=== PATIENT | male | born 1965 | race African-American/Black ===

== ENCOUNTER 2024-05-06 09:50 | Outpatient (AMB) | payer MEDICARE, MEDICAID, SELFPAY ==
--- NOTE | 2024-05-06 09:51 | A.SPINEOV_ITS ---
Vital Signs 05/06/24 09:54 Height 5 ft 9 in Weight 160 lb BMI 23.6 Intake Visit Reasons: chronic bilateral thoracic back pain Intake Note: Mr. Arevalo is here today c/o neck and back discomfort. Mock Up Builder Required: No Allergies No Known Allergies Allergy (Verified 05/06/24 09:54) Assessment & Plan Assessment & Plan (1) Neuroforaminal stenosis of cervical spine: Code(s): M48.02 - Spinal stenosis, cervical region Category: Medical (2) Cervical radiculopathy at C8: Code(s): M54.12 - Radiculopathy, cervical region Category: Medical Plan Dear colleague Thank you for referring Mario Arevalo to the office today with a chief complaint of left neck pain. HPI: This 59-year-old male is status post C5 corpectomy and C3-C4 diskectomy in the past. The surgery was complicated by a postop hematoma that resulted in permanent signs of cervical myelopathy with a spastic gait and numbness in his hands. He comes to see me for a severe pain in his neck that radiates to his scapula and shoulder. The pain started approximately 2 months ago and is not getting better. Extension of the neck produces the pain and therefore he likes to sit forward with with flexion of his neck. He denies any new numbness or weakness. He saw Dr. Delgadillo at [facility] want to refer him to pain management and set nothing else could be done. He comes to see me for a 2nd opinion. Physical Exam: Pleasant male. He ambulates with a cane. He has a spastic ga it. There is mild dexterity loss and pre-existing numbness of his hands. Spurling test is positive with pain radiating to his left neck and shoulder. Radiological Studies: MRI done at [facility] on 02/15/2024 shows a well- decompressed spinal cord and cord atrophy from C4-C7 and myelomalacia. There is severe left C8 foraminal stenosis and facet arthritis at this level. Impression/Plan: This patient is suffering from a left cervical radiculopathy that may be coming from the C7-T1 area. I will refer him to Dr. Ramirez at [facility] for a C7-T1 epidural steroid injection. A positive response would at least help me with a diagnosis to see if a C8 foraminotomies indicated. I will follow-up with the patient after the injection is done. Thank you for allowing me to participate in your patients care. total time spent was 50 minutes in counseling ,coordination of plan, personal review of imaging, surgical decision making and subsequent plan Rolando Gallardo MD, PhD Spine Fellowship Trained Neurosurgeon Director, [facility] Orders: Referrals Pain Management Referral M48.02 - Spinal stenosis, cervical region, M54.12 - Radiculopathy, cervical region Coding Level of Care Code New Pt Level 4 (45546) Diagnoses Neuroforaminal stenosis of cervical spine M48.02 Cervical radiculopathy at C8 M54.12
[2024-05-06 09:54] VITALS: BMI 23.6
--- OUTSIDE RECORDS SUMMARY | 2024-05-06 10:28 | XMS_ITS | Encounter Summary ---
Author Organization [facility] Address [address] [place] [address] Care Team Providers Care Case Briefer Name Role Phone Dianna Machuca MD Primary Care Provider Reason for Visit * Reason Onset Date Comments Procedure Appointment 02/04/2021 Encounter Details Date Type Department Care Team (Late st Contact Info) Description 02/04/2021 Telephone [facility] Central Scheduling Department [address] [place] [id number] Telephone Intake, Staff Procedure Appointment Social History Tobacco Use Types Packs/Day Years Used Date Smoking Tobacco: Some Days Cigarettes 1 38 Started: 09/22/1994 Smokeless Tobacco: Never Comments:Pack years updated based on CT lung screen order. Alcohol Use Standard Drinks/Week Comments Yes 0 (1 standard drink = 0.6 oz pur e alcohol) 2 beers/every couple of days Sex and Gender Information Value Date Recorded Sex Assigned at Male 05/15/2023 5:19 PM EST Legal Sex Male 7:10 AM EDT Gender Identity Male 05/15/2023 5:19 PM EST Sexual Orientation Straight 05/15/2023 5: 19 PM EST documented as of this encounter Miscellaneous Notes * Telephone Encounter - Debbie Samuels - 02/04/2021 2:24 PM EDT Appt booked with patient. * Telephone Encounter - Asim Lemon - 02/04/2021 1:58 PM EDT Pt.'s marek Grover calling in to schedule a Biopsy Procedure. Pt.'s Marek grover can be reached at [phone] documented in this encounter Plan of Treatment Scheduled Procedures Name Priority Associated Diagnoses Date/Ti me COLONOSCOPY SCREENING, LOW R ISK WITH POSSIBLE MODERATE SEDATION Colon cancer screening documented as of this encounter Visit Diagnoses Not on filedocumented in this encounter Care Teams Case Briefer Relationship Specialty Start Date End Date Dianna Machuca MD [address] [place] [id number] PCP - General Family Medicine 10/04/22 documented as of this encounter
--- OUTSIDE RECORDS SUMMARY | 2024-05-06 10:29 | XMS_ITS | Encounter Summary ---
Author Organization [facility] Address [address] [place] [address] Care Team Providers Care Dye Feeder Name Role Phone Dianna Machuca MD Primary Care Provider Reason for Visit * Reason Onset Date Comments PT 1 TRansportation 04/13/2024 Encounter Details Date Type Department Care Team (Late st Contact Info) Description 04/13/2024 Telephone [facility] [address] [place] [id number] Masticator: Dianna Rosen MD [address] [place] [address] PT 1 TRansportation Social History Tobacco Use Types Packs/Day Years Used Date Smoking Tobacco: Every Day Cigarettes 1 38.4 Started: 09/22/1994 Smokeless Tobacco: Never Comments:Pack years updated based on CT lung screen order. Alcohol Use Standard Drinks/Week Comments Yes 0 (1 standard drink = 0.6 oz pur e alcohol) 2 beers/every couple of days [facility] Utilities Answer Date Recorded In the past 12 months has [employer] electric, gas, oil, or water company threatened to shut off services in your home? No 12/21/2023 Hunger Vital Sign Answer Date Recorded Within the past 12 months, y ou worried that your food would run out before you got the money to buy more. Never true 12/21/19 24 Within the past 12 months, t he food you bought just didn't last and you didn't have money to get more. Never true 12/21/2023 Transportation Answer Date Recorded In the past 12 months, has l ack of reliable transportation kept you from medical appointments, meetings, work or from getting things needed for daily living? No 12/21/2023 Housing Answer Date Recorded Housing Risk Low 1 12/21/2023 Housing Risk Medium 1 12/21/2023 Housing Risk High Not on file 12/21/2023 What is your living situation today? [facility] 12/21/2023 Sex and Gender Information Value Date Recorded Sex Assigned at Male 05/15/2023 5:19 PM EST Legal Sex Male 7:10 AM EDT Gender Identity Male 05/15/2023 5:19 PM EST Sexual Orientation Straight 05/15/2023 5: 19 PM EST documented as of this encounter Miscellaneous Notes * Telephone Encounter - Brian Rojas - 04/13/2024 9:31 AM EST PT-1 Request Number [id number] is Pending/ Dr Gallardo [address] [place] [address] Dr. Shahrzad Courtney * Telephone Encounter - Brian Rojas - 04/13/2024 9:26 AM EST PT-1 Request Number [id number] is Pending/ [address] [place] [address] * Telephone Encounter - Brian Rojas - 04/13/2024 9:25 AM EST PT-1 Request Number [id number] is Authorized / [address] * Telephone Encounter - Brian Rojas - 04/13/2024 9:23 AM EST PT-1 Request Number [id number] is Authorized / [facility] documented in this encounter Plan of Treatment Scheduled Procedures Name Priority Associated Diagnoses Date/Ti me COLONOSCOPY SCREENING, LOW R ISK WITH POSSIBLE MODERATE SEDATION Colon cancer screening documented as of this encounter Visit Diagnoses Not on filedocumented in this encounter Care Teams Dye Feeder Relationship Specialty Start Date End Date Dianna Machuca MD [address] [place] [address] PCP - General Family Medicine 10/04/22 documented as of this encounter
--- OUTSIDE RECORDS SUMMARY | 2024-05-06 10:29 | XMS_ITS | Clinical Summary ---
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 diclofenac (VOLTAREN) 1% gelIndications:P osterior right knee pain Apply 2 g topically to the affected area 4 times a day. 100 g 01/12/20 20 Active baclofen (LIORESAL) 20 mg tabletIndication s:Muscle spasm Take 1 tablet (20 mg total) by mouth 3 times a day. [phone] 270 tablet 12/04/19 23 Active betamethasone dipropionate 0.05 % ointmentIndicati ons:Lichen planus Apply topically to the affected area 2 times a day as needed (Rash). 45 g 3 12/04/19 23 Active polyethylene glycol 3350 (MIRALAX) 17 gram packetIndication s:Chronic idiopathic constipation Take 1 packet (17 g total) by mouth once a day. Mix powder in 4 to 8 oz of water, juice, coffee, or tea. 30 each 1 12/04/19 23 Active triamcinolone acetonide (KENALOG) 0.1% ointment Apply topically to the affected area 2 times a day. 30 g 12/04/19 23 Active sucralfate (CARAFATE) 1 gram tablet Take 1 tablet (1 g total) by mouth 2 times a day as needed (dyspepsia). 60 tablet 5 03/11/20 23 Active QUEtiapine (SEROquel) 100 mg tablet Take 1 tablet (100 mg total) by mouth nightly. 30 tablet 11 08/10/19 24 Active atorvastatin (LIPITOR) 10 mg tabletIndication s:Cardiovascular risk factor TAKE ONE TABLET BY MOUTH DAILY 90 tablet 3 10/02/19 24 Active multivitamin (Daily-Simone, with folic acid,) tablet TAKE 1 TABLET BY MOUTH ONCE A DAY. 90 tablet 3 10/02/19 24 Active food supplemt, lactose-reduced (Ensure) liquid TAKE BY MOUTH 3 TIMES A DAY. [place] flavor. 330 mL 11 12/21/19 24 Active diclofenac (VOLTAREN) 50 mg EC tabletIndication s:Trochanteric bursitis of left hip Take 1 tablet (50 mg total) by mouth 2 times a day as needed (pain control). 180 tablet 11 03/04/20 24 Active gabapentin (NEURONTIN) 100 mg capsule Take 1 capsule (100 mg total) by mouth 2 times a day. 60 capsule 3 03/11/20 24 Active amLODIPine (NORVASC) 10 mg tabletIndication s:Hypertension, unspecified type TAKE 1 TABLET (10 MG TOTAL) BY MOUTH ONCE A DAY. 90 tablet 03/22/20 24 Active lamoTRIgine (LaMICtal) 100 mg tablet Take 1 tablet (100 mg total) by mouth once a day. 30 tablet 2 03/24/20 24 025 Active omeprazole (PriLOSEC) 20 mg capsuleIndicatio ns:Epigastric pain TAKE 1 CAPSULE (20 MG TOTAL) BY MOUTH 2 TIMES A DAY. 180 capsule 1 04/11/19 25 Active calcium carbonate (Calcium Antacid) 200 mg calcium (500 mg) chewable tablet Chew and swallow 2 tablets (1,000 mg total) by mouth once a day. 180 tablet 3 04/18/19 25 Active omeprazole (PriLOSEC) 20 mg capsuleIndicatio ns:Epigastric pain Take 1 capsule (20 mg total) by mouth 2 times a day. 180 capsule 1 08/10/19 24 025 Discontinued Hospital, Clinic, or Other Facility Administered Medication Ordered Dose Route Frequency Start Date End Date Status lidocaine-EPINEPHrine PF (XYLOCAINE W/ EPI) 1%-1:200,000 injection 50 mgIndications:Hyperpigme nted skin lesion 50 mg intraderma Once 03/14/2021 Active Active Problems Problem Noted Date Diagnosed Date Chronic bilateral back pain 03/25/2024 Moderate protein-calorie malnutrition 12/21/2023 Assessment & Plan (01/08/2024 12:05 PM EDT): -boost rx started today Orders: Durable Medical Equipment Reactive arthritis, unspecified site 01/21/2022 Chronic pain of right knee 08/15/2020 Assessment & Plan (08/15/2020 2:43 PM EDT): Follows with Dr Gramajo for sterioid injections for moderate knee arthritis. He is status post 3 injections of Visco supplementation last injection February 2020. Range of motion, pain, mobility are all decreasing. His history and physical exam are consistent with osteoarthritis. He did get a couple months of relief from the injection and would like to do another round. Placed amatory referral to orthopedics for Mario to be evaluated and treated again. Primary osteoarthritis of right knee 01/26/2020 Overview (01/26/2020): Seen by ortho 01/2020. Starting visco supplementation. Osteopenia of multiple sites 09/23/2019 Assessment & Plan (11/30/2019 6:35 PM EDT): Had incidental finding of osteopenia on LDCT for lung cancer screening 09/21/2019 F/u labs for osteopenia (CMP, CBC, Phos, Vit D, Testosterone, TSH w/ reflex, PTH) unremarkable DEXA 11/29/2019 showing osteopenia only, with 10-year Fracture Risk (FRAX) of 5.2% for major osteoporotic fracture and 0.8% for hip fracture Recommendations included Calcium 1000 mg daily, Vitamin D, and weight-bearing exercise Hernia of abdominal cavity 09/23/2019 Left leg weakness 03/25/2018 Tobacco use disorder 03/25/2018 Assessment & Plan (01/08/2024 12:05 PM EDT): Precontemplative stage of change -offered support Esophageal dysphagia 03/02/2017 Assessment & Plan (08/15/2020 2:40 PM EDT): Here for clinic visit for renewal of ensure. Patient has an ongoing need for Ensure secondary to dysphagia following a cervical spine surgery. His dysphagia is not progressive. He cuts his food into small pieces and is able to maintain his weight using 3 times daily Ensure. A summary of the visit was provided to the patient so that he can call to order his Ensure. Diffuse pain in left upper extremity 12/26/2016 Cervical vertebral fusion syndrome 05/29/2016 Assessment & Plan (01/08/2024 12:05 PM EDT): As above for neck pain Orders: Ambulatory referral to Ortho - All; Future S/P cervical spinal fusion 06/21/2015 Assessment & Plan (01/08/2024 12:05 PM EDT): Recently worsened neck pain -referral to establish care with new ortho given previous ortho has left the practice -DME order for soft cervical collar started today -cont tylenol, diclofenac, topical pain cream prn pain Cervical myelopathy 04/12/2015 Hyperreflexia 03/21/2015 Clonus 03/21/2015 Trochanteric bursitis of left hip 01/21/2013 Major depressive disorder with single episode, i n remission 03/10/2011 Lichen planus 03/02/2011 Essential hypertension 02/29/2008 Resolved Problems Problem Noted Date Diagnosed Date Resolved Date Left inguinal hernia 10/03/2019 020 Assessment & Plan (10/03/2019 10:21 AM EDT): Mario has a symptomatic left inguinal hernia. There was a visible bulge in the left inguinal area on exam today. He has no symptoms on the right. He also had an ultrasound that showed a fat-containing left inguinal hernia. I did discuss the case with Dr. Grant. Dr. Grant is offering an elective laparoscopic left inguinal hernia repair with mesh possible bilateral. Dr. Grant will examine him in the morning of surgery. I have been through the procedure in detail with Mario including risks. The risks of the procedure were reviewed with the patient including but not limited to pain, infection, bleeding, injury to surrounding structures, need for further procedures, heart attack, stroke and . The patient stated understanding and wishes to proceed with surgery. We also talked about the possibility of infertility, seroma, hematoma and urinary retention. I did offer an in person visit with Mario and the surgeon however Mario prefers to just go ahead and schedule surgery and he will meet Dr. Grant on the morning of surgery. I would like the case to be booked at [facility] as he does have a history of a neck fusion which may make intubation more difficult. He understands that he will be sore and out of work for 1 to 2 weeks and should do no heavy lifting greater than 10 pounds for 4 weeks postoperatively. He will be giving a small amount of narcotics for the first 2 days postoperatively and then he can alternate Tylenol and Advil. In the meantime I have warned him of signs and symptoms of strangulation and incarceration and he knows to go immediately to the nearest emergency room if any of those happen for him. He knows that he will need a COVID test 2 to 3 days before surgery and then to quarantine thereafter. I will order that and give him the date for that once we have a date for his surgery. He understands that he will need a ride to and from the hospital on the day of surgery. He does live with his girlfriend and this is not an issue. Thank you for allowing us to participate in his care. Overweight (BMI 25.0-29.9) 09/23/2019 0 12/03/2022 Fall 08/12/2017 12/03/2022 Viral infection 03/14/2016 12/03/2022 Pre-op examination 05/18/2015 3 Weakness of lower extremity 03/21/2015 05/18/2023 Acute gastritis 12/18/2014 12/03/2022 Gastroenteritis 09/07/2014 12/03/2022 Sprain of ribs 06/02/2014 12/03/2022 Hip pain 10/27/2013 12/03/2022 Contusion Of The Right Chest Wall With Intact Skin Surface 07/22/2012 12/03/2022 Disease of nail 06/09/2012 05/18/2023 Abdominal pain 10/10/2011 12/03/2022 Seborrheic dermatitis 03/11/20112022 Fracture of ankle Left 09/13/201012/03 Encounters * This document contains information received from the source organization and may not represent a complete record from that organization. Date Type Department Care Team Description 04/18/[address] [phone] Training Lead: Kala Hewitt MA 04/13/2024 Alisonhart Message [address] [phone] Training Lead: Francy Moser Provider Pt 1 Transportation Information 04/13/[address] [phone] Training Lead: Dianna Rosen MD PT 1 TRansportation 04/08/[address] [phone] Training Lead: Jennifer Reynoso PA Epigastric pain 04/04/[address] [phone] Training Lead: Dianna Rosen MD 03/28/2024 Mara Message [address] [phone] Training Lead: Francy Moser Provider REFERRAL TO DR SHAYY FIGUEROA 03/25/2024 3:30 PM EST [facility] [address] [phone] Training Lead: Dianna Rosen MD Cervical vertebral fusion syndrome (Primary Dx); Chronic bilateral thoracic back pain; Left leg weakness 03/24/[address] [phone] Training Lead: Queenie Bazan Telephone Intake, Staff PAC Appt Request - Established 03/21/2024 3:30 PM EST Follow-Up [facility] [address] [place] [address] Salomón Delgadillo MD History of fusion of cervical spine (Primary Dx) 03/21/[address] [phone] Training Lead: Jennifer Reynoso PA Hypertension, unspecified type 03/14/[address] [phone] Training Lead: Ramone Wallace [facility] 03/11/2024 2:15 PM EST Follow-Up [address] [phone] Training Lead: Dianna Rosen MD Hypertension, unspecified type (Primary Dx); Moderate protein-calorie malnutrition (HCC); Klippel-Feil syndrome; Colon cancer screening; Lack of access to transportation 03/04/[address] [phone] Training Lead: Dianna Rosen MD PAC Rx Questions 03/04/[address] [phone] Training Lead: Jennifer Reynoso PA Trochanteric bursitis of left hip 02/16/2024 5:01 PM EST - 02/16/2024 11:59 PM EST Hospital Encounter [facility] CT Scan [address] [place] [address] Cervical disc disorder with radiculopathy of mid-cervical region Discharge Disposition: Home or Self Care (01) 02/15/2024 Orders Only [facility] [address] [place] [address] Ana Mustafa PA Mid-cervical disc disorder, unspecified level from Last 3 Months Immunizations Name Administration Dates Next Due COVID-19, Pfizer, mRNA, Biva lent Booster, PF, 30 mcg/0.3 mL dose (for age 12 y and up) 01/01/2022 Covid-19, Pfizer, mRNA, Brooke valent, PF 30 mcg/0.3 mL dose (for ages 12 and older) 09/09/2021,01/29/2021,07/24/2020,07/03 Covid-19, Pfizer, mRNA, Sagar -sucrose Vaccine, PF, 30 mcg/0.3 mL (for age 12 y and up) 01/12/2023 INFLUENZA, SPLIT VIRUS, TRIVALENT, PF 03/09/2015 Influenza, Injectable, Madin Mikki Canine Kidney, Preservative Free, Quadrivalent 12/23/2018,12/15/2016 Influenza, Injectable, Quadr ivalent, Preservative Free 01/12/2023,01/01/2022,01/21/2021,12/21,02/01/2018,12/06/2015 Influenza, Unspecified 01/05/2024 Pneumococcal Polysaccharide Vaccine, 23 Valent 12/01/2018 Pneumococcal conjugate PCV20,polysaccharide [id number] conjugate, adjuvant, PF (Prevnar 20) 01/08/2024 Tetanus Toxoid, Reduced Diph theria Toxoid, and Acellular Pertussis Vaccine, Adsorbed 09/13/2018,03/08/2012 Zoster Vaccine Recombinant 01/12/2023 Family History Medical History Relation Name Comments Heart disease Father Other Father Family History of hypertension /Family History of cardiac disorder Asthma Mother Relation Name Status Comments Father Alive Mother Alive Social History Tobacco Use Types Packs/Day Years Used Date Smoking Tobacco: Every Day Cigarettes 1 38.4 Started: 09/22/1994 Smokeless Tobacco: Never Tobacco Cessation:Ready to Q uit: Not Asked; Counseling Given: Not Answered Comments:Pack years updated based on CT lung screen order. Alcohol Use Standard Drinks/Week Comments Yes 0 (1 standard drink = 0.6 oz pur e alcohol) 2 beers/every couple of days [facility] Utilities Answer Date Recorded In the past 12 months has th e electric, gas, oil, or water company threatened [...] Orientation Straight 05/15/2023 5: 19 PM EST Last Filed Vital Signs Vital Sign Reading Time Taken Comments Blood Pressure 128/80 03/11/2024 1:38 PM EST Pulse 79 03/11/2024 1:38 PM EST Temperature 36.7 ??C (98 ??F) 01/21/2024 10:43 AM EDT Respiratory Rate 16 01/21/2024 10:43 AM EDT Oxygen Saturation 98% 01/08/2024 10:47 AM EDT Inhaled Oxygen Concentration - - Weight 75.8 kg (167 lb) 03/11/2024 1:38 PM EST Height 177.8 cm (5' 10 ) 02/02/2024 1:30 PM EDT Body Mass Index 23.96 02/02/2024 1:30 PM EDT Plan of Treatment Scheduled Procedures Name Priority Associated Diagnoses Date/Ti me COLONOSCOPY SCREENING, LOW R ISK WITH POSSIBLE MODERATE SEDATION Colon cancer screening Health Maintenance Due Date Last Done Comments CT Lung Cancer Screening (12 months, previous LungRADS 1 or 2) 09/21/2020 09/22/2019, 09/21/2019 Colonoscopy 11/13/2021 11/13/2016 Zoster Vaccines (2 of 2) 03/09/2023 01/12/2023 COVID-19 Vaccine ( season) 2023 01/12/2023, 01/01/2022, 09/09/2021, Additional history exists Alcohol/Substance Use Screening 04/06/2024 Depression Evaluation 04/06/2024 Social Drivers of Health Annual Screening 04/06/2024 12/21/2023 Basic Metabolic Panel 12/20/2024 12/21/2023 , 11/15/2019, 09/23/2019, Additional history exists DTaP,Tdap,and Td Vaccines (3 - Td or Tdap) 09/13/2028 09/13/2018, 03/08/2012 RSV Vaccine (60+ years old and patients) (1 - 1-dose 75+ series) 02/02/2039 Tobacco Screening 04/06/2042 03/25/2024 Abdominal Aortic Aneurysm (AAA) Screening Completed 09/24/2011 Hepatitis C Screening Completed 08/22/2016 Statin Therapy Completed 10/02/2023 Influenza Vaccine Completed 01/05/2024, , 01/01/2022, Additional history exists HIV Screening Completed 01/08/2024 Pneumococcal Vaccine: Pediatric (0-5 Years) and At-Risk Patients (6-64 Years) Completed 01/08/2024, 12/01/2018 Hepatitis B Vaccines Aged Out No long er eligible based on patient's age to complete this topic Medical Devices Implanted Type Area Foundation Stage Teacher Device Identifier Shelf Expiration Date Model / Serial / Lot Mesh Inguinal Hernia Left Large [id number] - [id number] Implanted:Qty: 1 on 10/14/2019 by Kathy Grant MD at [facility] Mesh Left: Groin [employer] 04/02/2024 [id number] / / [id number] Procedures * Due to [place] state law, this organization might not be sharing negative HIV tests. Procedure Name Priority Date/Time Associated Diagnosis Comments CT CERVICAL SPINE WO CONTRAST Routine 02/16/2024 5:05 PM EST Cervical disc disorder with radiculopathy of mid-cervical region MRI CERVICAL SPINE WO CONTRAST Routine 02/15/2024 8:50 PM EST Mid-cervical disc disorder, unspecified level BASIC METABOLIC PANEL Routine 12/21/2023 10:43 AM EDT Screening for diabetes mellitus CT LUNG CANCER SCREENING BASELINE Routine 09/21/2019 2:32 PM EDT Personal history of nicotine dependence COLONOSCOPY 11/13/2016 10:02 AM EDT HEPATITIS C ANTIBODY W/REFLEX TO HCV RNA, QUANTITATIVE PCR Routine 08/22/2016 1:[address] ABDOMEN PELVIS WO CONTRAST STAT 09/24/2011 1:24 PM EDT from Last 3 Months or Most Recently Relevant to Health Maintenance Results * Due to [place] state law, this organization might not be sharing negative HIV tests. * CT Cervical Spine WO Contrast (02/16/2024 5:05 PM EST) Anatomical Region Laterality Modality Spine, C-spine Computed Tomogra phy 02/16/2024 6:09 PM EST Impressions 02/17/2024 1:23 PM EST Remote, partial C5 corpectomy and C3-6 ACDF changes. No mechanical failure or hardware loosening. Developing degenerative changes above and below the fulcrum with mild to moderate C2-3, C6-7, moderate to severe C7-T1 cervical canal/foraminal stenosis. Severe, right-sided C4-5, C5-6 foraminal stenosis. Additional, chronic degenerative findings as detailed above. Appropriate clinical, imaging correlation and follow-up advised. If this radiology report contains a blank impression section, it is an incomplete radiology report. ??Please contact the interpreting radiologist or applicable radiology division as soon as possible to obtain the completed interpretation. ? Workstation ID: [id number] Up-to-date CT equipment and radiation dose reduction techniques were employed. CTDIvol: 15.0 mGy. DLP: 385 mGy-cm. Narrative 02/17/2024 1:23 PM EST EXAMINATION: CT CERVICAL SPINE WITHOUT CONTRAST TECHNIQUE: Helical CT scan of the cervical spine was performed without intravenous administration with sagittal and coronal reformats. CLINICAL INFORMATION: Chronic neck pain, prior surgery, COMPARISON: Prior comparable studies most recent of which is a cervical spine MRI dated 02/15/2024. FINDINGS: The alignment is within anatomic limits. Remote C5 partial corpectomy with bone containing graft extending from C4 to C6 and C3-6 ACDF changes are again noted. ??Residual C4-5, C5-6 disc spaces are again faintly visualized. ??Otherwise solid anterior fusion is present. ??There is no mechanical failure or loosening of hardware. ??No displaced fractures or compression deformities are seen. Degenerative changes above and below the fulcrum were better delineated in the recent MRI. Individual levels: C1-C2: Retrodental buildup is slightly crowding central canal. ?? C2-C3: Degenerative disc disease, disc bulge and facet arthrosis are contributing to mild to moderate central canal stenosis. ??Neural foramen are better preserved. C3-C4: Posttreatment changes, residual disc osteophyte complex and facet arthrosis are noted. ??Central canal is overall preserved. ??Moderate to severe, bilateral foraminal stenosis is present. C4-C5: Posttreatment changes, asymmetric disc osteophyte complex and facet arthrosis are noted. ??Central canal remains preserved. ??Moderate left, severe right foraminal stenosis is present. C5-C6: Posttreatment changes, asymmetric disc osteophyte complex and facet arthrosis are noted. ??Central canal remains preserved. ??Moderate left, severe right foraminal stenosis are present. C6-C7: Degenerative disc space narrowing, disc osteophyte complex, flaval thickening and facet arthrosis are contributing to mild to moderate central canal and bilateral foraminal stenosis. C7-T1: Degenerative disc disease, asymmetric disc osteophyte complex, flaval thickening and facet arthrosis are contributing to mild to moderate right, moderate to severe left foraminal and moderate central canal stenosis. There is no obvious prevertebral swelling or large paraspinal collection. The craniocervical junction is normal. Resulting Agency Comment [id number] Procedure Note Raheel Marx MD - 02/17/2024 EXAMINATION: CT CERVICAL SPINE WITHOUT CONTRAST TECHNIQUE: Helical CT scan of the cervical spine was performed without intravenousadministration with sagittal and coronal reformats. CLINICAL INFORMATION: Chronic neck pain, prior surgery, COMPARISON: Prior comparable studies most recent of which is a cervical spine MRIdated 02/15/2024. FINDINGS: The alignment is within anatomic limits. Remote C5 partial corpectomy with bone containing graft extending from C4to C6 and C3-6 ACDF changes are again noted. Residual C4-5, C5-6 discspaces are again faintly visualized. Otherwise solid anterior fusion ispresent. There is no mechanical failure or loosening of hardware. Nodisplaced fractures or compression deformities are seen. Degenerative changes above and below the fulcrum were better delineated inthe recent MRI. Individual levels: C1-C2: Retrodental buildup is slightly crowding central canal. C2-C3: Degenerative disc disease, disc bulge and facet arthrosis arecontributing to mild to moderate central canal stenosis. Neural foramenare better preserved. C3-C4: Posttreatment changes, residual disc osteophyte complex and facetarthrosis are noted. Central canal is overall preserved. Moderate tosevere, bilateral foraminal stenosis is present. C4-C5: Posttreatment changes, asymmetric disc osteophyte complex and facetarthrosis are noted. Central canal remains preserved. Moderate left,severe right foraminal stenosis is present. C5-C6: Posttreatment changes, asymmetric disc osteophyte complex and facetarthrosis are noted. Central canal remains preserved. Moderate left,severe right foraminal stenosis are present. C6-C7: Degenerative disc space narrowing, disc osteophyte complex, flavalthickening and facet arthrosis are contributing to mild to moderatecentral canal and bilateral foraminal stenosis. C7-T1: Degenerative disc disease, asymmetric disc osteophyte complex,flaval thickening and facet arthrosis are contributing to mild to moderateright, moderate to severe left foraminal and moderate central canalstenosis. There is no obvious prevertebral swelling or large paraspinalcollection. The craniocervical junction is normal. IMPRESSION: Remote, partial C5 corpectomy and C3-6 ACDF changes. No mechanical failure or hardware loosening. Developing degenerative changes above and below the fulcrum with mild tomoderate C2-3, C6-7, moderate to severe C7-T1 cervical canal/foraminalstenosis. Severe, right-sided C4-5, C5-6 foraminal stenosis. Additional, chronic degenerative findings as detailed above. Appropriate clinical, imaging correlation and follow-up advised. If this radiology report contains a blank impression section, it is anincomplete radiology report. Please contact the interpreting radiologistor applicable radiology division as soon as possible to obtain thecompleted interpretation. Workstation ID: [id number] Up-to-date CT equipment and radiation dose reduction techniques wereemployed. CTDIvol: 15.0 mGy. DLP: 385 mGy-cm. us Ana PATEL IMG CT PROCEDURES Final Resu lt * MRI Cervical Spine WO Contrast (02/15/2024 8:50 PM EST) Anatomical Region Laterality Modality Spine, C-spine Magnetic Resonan ce 02/16/2024 10:0 2 AM EST Impressions 02/16/2024 10:10 AM EST 1. ??Redemonstrated are postoperative changes related to prior corpectomy of C5 with metallic left and prior anterior fusion of C3-C6 vertebral bodies. ??Associated susceptibility somewhat limits the evaluation at these levels. 2. ??Severe right, moderate left neural foramen narrowing with mild spinal canal stenosis at C3-C4 is minimally improved since the prior MRI. 3. ??Relatively stable multilevel multifactorial degenerative disease of the cervical spine at the remaining levels with severe bilateral neural foramen narrowing at C4-C5 and C5-C6, moderate bilateral neural foramen narrowing with mild spinal canal stenosis at C6-C7 and moderate right, severe left neural foramen narrowing and mild spinal canal stenosis at C7-T1. 4. ??Focal myelomalacia of the cord at C3-C4 and C5-C6 levels with long segment thinning of the cord from C3 to C6-C7 levels as described above. If this radiology report contains a blank impression section, it is an incomplete radiology report. ??Please contact the interpreting radiologist or applicable radiology division as soon as possible to obtain the completed interpretation. ? Workstation ID: [id number] Narrative 02/16/2024 10:10 AM EST EXAMINATION: MRI of cervical spine without contrast HISTORY: Neck pain, degenerative changes TECHNIQUE: Multiplanar and multisequence MR imaging of cervical spine spine performed without intravenous contrast administration. Sequences obtained include, Sagittal plane: T1, T2 and STIR Axial plane: T2 and gradient COMPARISON: MRI cervical spine from 06/16/2015 FINDINGS: There is straightening of cervical lordosis. ??Also seen is mild retrolisthesis of C4 on C5 and anterolisthesis of C7 on T1. There has been prior corpectomy of C5 vertebral body with metallic graft and prior anterior fusion of C3-C6 vertebral bodies using anterior spinal plate and screw hardware. ??Associated susceptibility artifact markedly limits the evaluation for marrow signal and disc signal at these levels. Remainder of the vertebral body heights are preserved. ??Remainder of the marrow signal appears unremarkable. ??There is focal T2 hyperintensity in the cord with thinning of the cord at the level of C3-C4 and C5-C6 levels in keeping with myelomalacia. ??Also seen is long segment thickening of the cord extending from mid C3 level up to C6-C7 level, likely related to myelomalacia. Intervertebral disc graft is seen at C3-C4. ??Loss of intervertebral disc height and signal at the remaining levels in keeping with disc degeneration. Visualized thyroid gland is unremarkable. Prevertebral, paravertebral and paraspinal soft tissues appear unremarkable. At C2-C3, central disc osteophyte complex with uncovertebral and facet arthropathy resulting in moderate right, mild left neural foramen narrowing and moderate spinal canal stenosis.. ??This is unchanged since the prior MRI. At C3-C4,central disc ossified complex with uncovertebral and facet arthropathy resulting in severe right, moderate left neural foramen narrowing and mild spinal canal stenosis. ??This is improved since the prior MRI. At C4-C5, central disc ossified complex with uncovertebral and facet arthropathy results in severe bilateral neural foramen narrowing. ??No spinal canal stenosis. This is unchanged since the prior MRI. At C5-C6, uncovertebral and facet arthropathy resulting in severe bilateral neural foramen narrowing. ??No spinal canal stenosis. ??This is unchanged since the prior MRI. At C6-C7, Central disc osteophyte complex with uncovertebral and facet arthropathy results in moderate bilateral neural foramen narrowing and mild spinal canal stenosis. ??This is unchanged since the prior MRI. At C7-T1, diffuse disc bulge with bilateral facet arthropathy results in moderate right, severe left neural foramen narrowing and mild spinal canal stenosis. ??This is unchanged since the prior MRI. Resulting Agency Comment [id number] Procedure Note Carlie Rivera MD - 02/16/2024 EXAMINATION: MRI of cervical spine without contrast HISTORY: Neck pain, degenerative changes TECHNIQUE: Multiplanar and multisequence MR imaging of cervical spine spine performedwithout intravenous contrast administration. Sequences obtained include, Sagittal plane: T1, T2 and STIR Axial plane: T2 and gradient COMPARISON: MRI cervical spine from 06/16/2015 FINDINGS: There is straightening of cervical lordosis. Also seen is mildretrolisthesis of C4 on C5 and anterolisthesis of C7 on T1. There has been prior corpectomy of C5 vertebral body with metallic graftand prior anterior fusion of C3-C6 vertebral bodies using anterior spinalplate and screw hardware. Associated susceptibility artifact markedlylimits the evaluation for marrow signal and disc signal at these levels. Remainder of the vertebral body heights are preserved. Remainder of themarrow signal appears unremarkable. There is focal T2 hyperintensity inthe cord with thinning of the cord at the level of C3-C4 and C5-C6 levelsin keeping with myelomalacia. Also seen is long segment thickening of thecord extending from mid C3 level up to C6- C7 level, likely related tomyelomalacia. Intervertebral disc graft is seen at C3-C4. Loss of intervertebral discheight and signal at the remaining levels in keeping with discdegeneration. Visualized thyroid gland is unremarkable. Prevertebral, paravertebral andparaspinal soft tissues appear unremarkable. At C2-C3, central disc osteophyte complex with uncovertebral and facetarthropathy resulting in moderate right, mild left neural foramennarrowing and moderate spinal canal stenosis.. This is unchanged sincethe prior MRI. At C3-C4,central disc ossified complex with uncovertebral and facetarthropathy resulting in severe right, moderate left neural foramennarrowing and mild spinal canal stenosis. This is improved since theprior MRI. At C4-C5, central disc ossified complex with uncovertebral and facetarthropathy results in severe bilateral neural foramen narrowing. Nospinal canal stenosis. This is unchanged since the prior MRI. At C5-C6, uncovertebral and facet arthropathy resulting in severebilateral neural foramen narrowing. No spinal canal stenosis. This isunchanged since the prior MRI. At C6-C7, Central disc osteophyte complex with uncovertebral and facetarthropathy results in moderate bilateral neural foramen narrowing andmild spinal canal stenosis. This is unchanged since the prior MRI. At C7-T1, diffuse disc bulge with bilateral facet arthropathy results inmoderate right, severe left neural foramen narrowing and mild spinal canalstenosis. This is unchanged since the prior MRI. IMPRESSION: 1. Redemonstrated are postoperative changes related to prior corpectomyof C5 with metallic left and prior anterior fusion of C3-C6 vertebralbodies. Associated susceptibility somewhat limits the evaluation at theselevels. 2. Severe right, moderate left neural foramen narrowing with mild spinalcanal stenosis at C3-C4 is minimally improved since the prior MRI. 3. Relatively stable multilevel multifactorial degenerative disease ofthe cervical spine at the remaining levels with severe bilateral neuralforamen narrowing at C4-C5 and C5-C6, moderate bilateral neural foramennarrowing with mild spinal canal stenosis at C6-C7 and moderate right,severe left neural foramen narrowing and mild spinal canal stenosis atC7-T1. 4. Focal myelomalacia of the cord at C3-C4 and C5-C6 levels with longsegment thinning of the cord from C3 to C6-C7 levels as described above. If this radiology report contains a blank impression section, it is anincomplete radiology report. Please contact the interpreting radiologistor applicable radiology division as soon as possible to obtain thecompleted interpretation. Workstation ID: [id number] [facility] MRI PROCEDURES Final Res ult * (ABNORMAL) Basic metabolic panel (12/21/2023 10:43 AM EDT) NA 142 135 - 145 mmol/L 12/21/2023 1:07 PM EDT [facility] K 3.5 3.5 - 5.3 mmol/L 12/21/2023 1:07 PM EDT [facility] Cl 106 98 - 107 mmol/L 12/21/2023 1:07 PM EDT [facility] CO2 26 24 - 32 mmol/L 12/21/2023 1:07 PM EDT [facility] BUN 7 7 - 23 mg/dL 12/21/2023 1:07 PM EDT [facility] Creatinine 1.13 0.60 - 1.30 mg/dL 12/21/2023 1:07 PM EDT [facility] Glucose 87 65 - 99 mg/dL 12/21/2023 1:07 PM EDT [facility] Calcium 8.5(L) 8.6 - 10.5 mg/dL 12/21/2023 1:07 PM EDT [facility] Anion Gap 10 5 - 15 [facility] 12/21/2023 1:07 PM EDT [facility]NM [facility] eGFR 75 >=60 mL/min/1. 73m2 [facility] 12/21/2023 1:07 PM EDT [facility] Comment:The estimated glomer ular filtration rate (eGFR) is calculated using a new formula developed by the NKF-ASN task force to eliminate race-based correction factors. The new formula uses serum/plasma creatinine, age, and gender to determine eGFR. A value below 60mls/min might indicate kidney disease and will be flagged. For additional information, see Perez et al, Am J Kidney Dis. 2021;79(2):268- 288, A Unifying Approach for GFR estimation: Recommendations of the NKF-ASN Task Force on Reassessing the Inclusion of Race in Diagnosing Kidney Disease . Blood Structure of peripheral vein / Unknown Venipuncture / Unknown 12/21/2023 10:43 AM EDT 12/21/2023 10:46 AM EDT us Dianna Machuca MD LAB BLOOD ORDERABLES Fi nal Result [facility]ONYHUENM [facility] [address] [place] [address], * CT Lung Screening (09/21/2019 2:32 PM EDT) Anatomical Region Laterality Modality Chest Computed Tomogra phy 09/22/2019 11:5 7 AM EDT Impressions 09/22/2019 1:38 PM EDT Slightly degraded study. ??No convincing nodules. Lung-RADS Category 2: Benign Appearance or Behavior Nodules with a very low likelihood of becoming a clinically active cancer due to size or lack of growth Lung-RADS Category Description 2: Continue annual screening with CT Lung Screening ??in 12 months Findings under this category can include: Perifissural nodule(s) < 10 mm (524 mm3) Solid nodule(s): < 6 mm (< 113 mm3) new < 4 mm (< 34 mm3) Part solid nodule(s): < 6 mm total diameter (< 113 mm3) on baseline screening Non solid nodule(s) (GGN): <30 mm (<36354 mm3) OR > or equal to 30 mm ( [place] [address] mm3) and unchanged or slowly growing. Category 3 or 4 nodules unchanged for > or equal to 3 months. ?? Modifier No clinically significant or potentially significant findings Schedule lung cancer screening CT/follow-up CT:09/23/2020 ----- ----- This report uses Lung RADS version 1.1 (2019) [email or web address] .pdf? ??The patient's prior cervical fixation. ??La=en [id number] Up-to-date CT equipment and radiation dose reduction techniques were employed. CTDIvol: 2.4 mGy. DLP: 91 mGy-cm. Narrative 09/22/2019 1:[address] LUNG SCREENING INDICATION: Lung cancer screening. ??38pack year history prior clinical notes COMPARISON: None TECHNIQUE: ??Non-enhanced chest CT. Images were acquired with helical acquisition and low dose technique. Multiplanar reconstructions including MIP, MinIP and Slab images were reviewed. Note that low dose technique uses a low level of radiation exposure that provides adequate lung detail but limited image quality in the mediastinum and upper abdomen. For radiation dose control at least one of the following techniques was used in this procedure (1) Automated exposure control (2) Adjustment of the mA and/or kV according to patient size (3) Use of iterative reconstruction technique. FINDINGS: BASE OF NECK: Examination is slightly degraded by metallic streak artifact from prior cervical fixation. LUNGS AND PLEURA: There is some degradation due to respiratory motion artifact. ??There is moderate severe emphysematous change with the centrilobular and apical type distribution, consistent with cigarette smoking. ??There is some atelectatic change present in the right middle lobe and to a slightly worsened degree the lingula as well as the anterior segment of the left lower lobe. ??Prominent epicardial fat is identified in these areas. Punctate left lower lobe nodule [6; 232] this is likely calcified. ??No additional nodules or findings. MEDIASTINUM: Moderate coronary artery calcification. ??Small hiatal hernia. NODES: No significant lymphadenopathy. UPPER ABDOMEN: No gross pathology is seen. BONES/SOFT TISSUES: . ??Some osteopenia is seen with minor wedging of what is likely the L2 vertebra. ??There is an area of sclerosis/groundglass change involving the left rib [9; 9, 3; 348]. ??The exact significance of this is uncertain, but it and the compression fracture at L2 were present on remote abdominal CT from 09/24/2011 and not likely of significance. Procedure Note Nas Marie MD - 09/22/2019 CT LUNG SCREENING INDICATION: Lung cancer screening. 38pack year history prior clinicalnotes COMPARISON: None TECHNIQUE: Non-enhanced chest CT. Images were acquired with helicalacquisition and low dose technique. Multiplanar reconstructions includingMIP, MinIP and Slab images were reviewed. Note that low dose techniqueuses a low level of radiation exposure that provides adequate lung detailbut limited image quality in the mediastinum and upper abdomen. For radiation dose control at least one of the following techniques wasused in this procedure (1) Automated exposure control (2) Adjustment ofthe mA and/or kV according to patient size (3) Use of iterativereconstruction technique. FINDINGS: BASE OF NECK: Examination is slightly degraded by metallic streak artifact from priorcervical fixation. LUNGS AND PLEURA: There is some degradation due to respiratory motion artifact. There ismoderate severe emphysematous change with the centrilobular and apicaltype distribution, consistent with cigarette smoking. There is someatelectatic change present in the right middle lobe and to a slightlyworsened degree the lingula as well as the anterior segment of the leftlower lobe. Prominent epicardial fat is identified in these areas. Punctate left lower lobe nodule [6; 232] this is likely calcified. Noadditional nodules or findings. MEDIASTINUM: Moderate coronary artery calcification. Small hiatal hernia. NODES: No significant lymphadenopathy. UPPER ABDOMEN: No gross pathology is seen. BONES/SOFT TISSUES: . Some osteopenia is seen with minor wedging of what is likely the [id number]. There is an area of sclerosis/groundglass change involving theleft rib [9; 9, 3; 348]. The exact significance of this is uncertain, butit and the compression fracture at L2 were present on remote abdominal CTfrom 09/24/2011 and not likely of significance. IMPRESSION: Slightly degraded study. No convincing nodules. Lung-RADS Category 2: Benign Appearance or Behavior Nodules with a verylow likelihood of becoming a clinically active cancer due to size or lackof growth Lung-RADS Category Description 2: Continue annual screening with CT Lung Screening in 12 months Findings under this category can include: Perifissural nodule(s) < 10 mm (524 mm3) Solid nodule(s): < 6 mm (< 113 mm3) new < 4 mm (< 34 mm3) Part solid nodule(s): < 6 mm total diameter (< 113 mm3) on baseline screening Non solid nodule(s) (GGN): <30 mm (<98593 mm3) OR > or equal to 30 mm ( > [place] [address] mm3) and unchanged or slowly growing. Category 3 or 4 nodules unchanged for > or equal to 3 months. Modifier No clinically significant or potentially significant findings Schedule lung cancer screening CT/follow-up CT:09/23/2020 ----- ----- This report uses Lung RADS version 1.1 (2019) [email or web address] .pdf? The patient's prior cervical fixation. La=en [id number] Up-to-date CT equipment and radiation dose reduction techniques wereemployed. CTDIvol: 2.4 mGy. DLP: 91 mGy-cm. us Alma Gallardo MD IMG CT PROCEDURES Final Re sult * COLONOSCOPY (11/13/2016 10:02 AM EDT) Narrative Procedure Note Elias Velez MD PhD - 11/13/2016 10:02 AM EDT Patient Name: Mario Arevalo Procedure Date: 11/13/2016 10:02 AM Date of : 1965 Admit Type: Outpatient Age: 51 Room: Room 5 Gender: Male Note Status: Finalized Attending MD: Elias Velez MD Procedure: Colonoscopy Indications: Screening for colorectal malignant neoplasm Providers: Elias Velez MD (Doctor) Referring MD: Matthew Skaggs (Referring MD) Requesting Provider: Medicines: Propofol per Anesthesia Complications: No immediate complications. Estimated Blood Loss: Estimated blood loss: none. Procedure: Pre-Anesthesia Assessment: - Prior to the procedure, a History and Physical was performed, and patient medications and allergies were reviewed. The patient is competent. The risks andbenefits of the procedure and the sedation options and riskswere discussed with the patient. All questions were answered and informed consent was obtained. Patientidentification and proposed procedure were verified by the physician,the nurse and the anesthesiologist in the pre-procedurearea in the endoscopy suite. Mental Status Examination:alert and oriented. Airway Examination: normal oropharyngeal airway and neck mobility. Respiratory Examination:clear to auscultation. CV Examination: normal. Prophylactic Antibiotics: The patient does not require prophylactic antibiotics. Prior Anticoagulants: The patient hastaken no previous anticoagulant or antiplatelet agents. ASA Grade Assessment: II - A patient with mild systemic disease. After reviewing the risks and benefits, the patient was deemed in satisfactory condition to undergo the procedure. The anesthesia plan was to use monitored anesthesia care (MAC). Immediately prior toadministration of medications, the patient was re-assessed foradequacy to receive sedatives. The heart rate, respiratory rate, oxygen saturations, blood pressure, adequacy ofpulmonary ventilation, and response to care were monitored throughout the procedure. The physical status of the patient was re-assessed after the procedure. After I obtained informed consent, the scope was passed under direct vision. Throughout the procedure, the patient's blood pressure, pulse, and oxygen saturations were monitored continuously. The [id number]-[id number] OLYMPUS [id number] was introduced through the anus and advanced to the cecum, identified by appendiceal orifice andileocecal valve. The colonoscopy was performed withoutdifficulty. The quality of the bowel preparation was good. Thebowel preparation used was GoLYTELY. Findings: The perianal and digital rectal examinations were normal. A 3 mm polyp was found in the ascending colon. The polyp was sessile. The polyp was removed with a cold biopsy forceps. Resection and retrieval were complete. Verification of patient identification forthe specimen was done by the physician, nurse and machine packaging technician using the patient's name and date. Estimated blood loss was minimal. A localized area of granular mucosa was found in the rectum. Biopsies were taken with a cold forceps for histology. Verification of patient identification for the specimen was done by the physician, nurse and machine packaging technician using the patient's name and date. Estimated bloodloss was minimal. Impression: - One 3 mm polyp in the ascending colon. Resected and retrieved. - Granularity in the rectum. Biopsied. Recommendation: - Discharge patient to home. - Await pathology results. - Repeat colonoscopy in 5 years for surveillance basedon pathology. Elias Velez MD 11/13/2016 10:53:57 AM This report has been signed electronically. Number of Addenda: 0 Note Initiated On: 11/13/2016 10:02 AM Elias Velez MD PROVATION PROCEDURES Final R esult * Hepatitis C Antibody w/Reflex to HCV RNA, Quantitative PCR (08/22/2016 1:04 PM EDT) Hepatitis C Antibody NON-REACTI VE NON-REACT MO [facility] Signal To Cut-Off 0.01 <1.00 [facility] 08/22/2016 1:04 PM EDT 08/22/2016 2:24 PM EDT Matthew Skaggs MD LAB BLOOD ORDERABLES Final Result [facility] [address], [place] [address], [place] [phone] * CT Abdomen Pelvis WO Contrast (09/24/2011 1:24 PM EDT) Anatomical Region Laterality Modality Body Computed Tomogra phy 09/24/2011 11:5 0 AM EDT Impressions 09/24/2011 3:01 PM EDT No acute intra-abdominal process to explain the patient's symptoms. I have personally reviewed the image(s), and I agree with the above report. Narrative 09/24/2011 3:01 PM EDT EXAMINATION: CT abdomen and pelvis without contrast. INDICATION: Abdominal pain. TECHNIQUE: Axial images were obtained from the lung bases to pubic symphysis using contiguous 5 mm slices. ??In addition, coronal and sagittal reconstructions were generated. COMPARISON: None FINDINGS: Evaluation of vasculature, solid organs, masses, and fluid collections is limited due to lack of intravenous contrast. The lung bases demonstrate minimal dependent atelectasis. There is no focal consolidation, pleural effusion or pneumothorax. Within the limitations of this non-contrast study, the liver and gallbladder demonstrate no gross abnormality. The kidneys, pancreas, adrenal glands and spleen are grossly unremarkable. There is no intraperitoneal free air or free fluid. The appendix is normal. The bowel demonstrates normal course and caliber. ??No lymphadenopathy is seen. The aorta is normal in caliber. ??The prostate gland and urinary bladder are without gross abnormality. ?? There is a compression deformity at L2, which is unchanged since 2004. There is no acute osseous abnormality. Procedure Note George Vera MD - 12/04/2016 EXAMINATION: CT abdomen and pelvis without contrast. INDICATION: Abdominal pain. TECHNIQUE: Axial images were obtained from the lung bases to pubic symphysis using contiguous 5 mm slices. In addition, coronal and sagittal reconstructions were generated. COMPARISON: None FINDINGS: Evaluation of vasculature, solid organs, masses, and fluid collections is limited due to lack of intravenous contrast. The lung bases demonstrate minimal dependent atelectasis. There is no focal consolidation, pleural effusion or pneumothorax. Within the limitations of this non-contrast study, the liver and gallbladder demonstrate no gross abnormality. The kidneys, pancreas, adrenal glands and spleen are grossly unremarkable. There is no intraperitoneal free air or free fluid. The appendix is normal. The bowel demonstrates normal course and caliber. No lymphadenopathy is seen. The aorta is normal in caliber. The prostate gland and urinary bladder are without gross abnormality. There is a compression deformity at L2, which is unchanged since 2004. There is no acute osseous abnormality. IMPRESSION: No acute intra-abdominal process to explain the patient's symptoms. I have personally reviewed the image(s), and I agree with the above report. 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
--- OUTSIDE RECORDS SUMMARY | 2024-05-06 10:29 | XMS_ITS | Encounter Summary ---
Author Organization [facility] Address [address] [place] [address] Care Team Providers Care Pl Sql Programmer Name Role Phone Dianna Machuca MD Primary Care Provider Reason for Visit * Reason Comments Med Refill Encounter Details Date Type Department Care Team (Late st Contact Info) Description 04/08/2024 Refill [facility] [address] [place] [phone] Apprentice Embalmer: Jennifer Reynoso PA [address] [place] [address] Epigastric pain Social History Tobacco Use Types Packs/Day Years Used Date Smoking Tobacco: Every Day Cigarettes 1 38.4 Started: 09/22/1994 Smokeless Tobacco: Never Comments:Pack years updated based on CT lung screen order. Alcohol Use Standard Drinks/Week Comments Yes 0 (1 standard drink = 0.6 oz pur e alcohol) 2 beers/every couple of days [facility] Utilities Answer Date Recorded In the past 12 months has [employer] electric, gas, oil, or water company threatened [...] encounter Miscellaneous Notes * Telephone Encounter - Deb Cummings MA - 04/08/2024 2:50 PM EST Requested Prescriptions Pending Prescriptions Disp Refills omeprazole (PriLOSEC) 20 mg capsule [Pharmacy Med Name: OMEPRAZOLE 20 MG ORAL CAPSULE DELAYED RELEASE] 180 capsule 1 Sig: TAKE 1 CAPSULE (20 MG TOTAL) BY MOUTH 2 TIMES A DAY. Last fill: 08/10/2023 Days Supply: 180 capsule Refills: 1 Last visit: 03/25/2024 Next visit: 0 Pertanant Info: Not Applicable Health Maintenance Due Topic Date Due CT Lung Cancer Screening (12 months, previous LungRADS 1 or 2) 09/21/2020 Colonoscopy 11/13/2021 Zoster Vaccines (2 of 2) 03/09/2023 COVID-19 Vaccine ( season) 2023 Alcohol/Substance Use Screening 04/06/2024 Actions Taken:Reviewed care gaps None required documented in this encounter Plan of Treatment Scheduled Procedures Name Priority Associated Diagnoses Date/Ti me COLONOSCOPY SCREENING, LOW R ISK WITH POSSIBLE MODERATE SEDATION Colon cancer screening documented as of this encounter Visit Diagnoses Diagnosis Epigastric pain Abdominal pain, epigastric documented in this encounter Care Teams Pl Sql Programmer Relationship Specialty Start Date End Date Dianna Machuca MD [address] [place] [id number] PCP - General Family Medicine 10/04/22 documented as of this encounter
--- OUTSIDE RECORDS SUMMARY | 2024-05-06 10:29 | XMS_ITS | Encounter Summary ---
Author Organization [facility] Address [address] [place] [address] Care Team Providers Care Automatic Machines Supervisor Name Role Phone Dianna Machuca MD Primary Care Provider Encounter Details Date Type Department Care Team (Late st Contact Info) Description 03/28/2024 [place] Message [facility] [address] [place] [phone] Tennis Camp Instructor: Queenie Linares, [facility] Provider [address] [place], [place] [phone] REFERRAL TO DR SHAYY FIGUEROA Social History Tobacco Use Types Packs/Day Years Used Date Smoking Tobacco: Every Day Cigarettes 1 38.4 Started: 09/22/1994 Smokeless Tobacco: Never Comments:Pack years updated based on CT lung screen order. Alcohol Use Standard Drinks/Week Comments Yes 0 (1 standard drink = 0.6 oz pur e alcohol) 2 beers/every couple of days [facility] Utilities Answer Date Recorded In the past 12 months has [employer] electric, gas, oil, or water company threatened [...] PM EST documented as of this encounter Plan of Treatment Scheduled Procedures Name Priority Associated Diagnoses Date/Ti me COLONOSCOPY SCREENING, LOW R ISK WITH POSSIBLE MODERATE SEDATION Colon cancer screening documented as of this encounter Visit Diagnoses Not on filedocumented in this encounter Care Teams Automatic Machines Supervisor Relationship Specialty Start Date End Date Dianna Machuca MD [address] [place] [id number] PCP - General Family Medicine 10/04/22 documented as of this encounter
--- OUTSIDE RECORDS SUMMARY | 2024-05-06 10:29 | XMS_ITS | Referral Summary ---
Author Organization [facility] Address [address] [place] [address] Care Team Providers Care Baccarat Dealer Name Role Phone Dianna Machuca MD Primary Care Provider Encounters * This document contains information received from the source organization and may not represent a complete record from that organization. Date Type Department Care Team Description 04/18/[address] [phone] Licensed Prosthetist/Orthotist: Kala Hewitt MA 04/13/2024 Mara Message [address] [phone] Licensed Prosthetist/Orthotist: Francy Moser Provider Pt 1 Transportation Information 04/13/[address] [phone] Licensed Prosthetist/Orthotist: Dianna Rosen MD PT 1 TRansportation 04/08/[address] [phone] Licensed Prosthetist/Orthotist: Jennifer Reynoso PA Epigastric pain 04/04/[address] [phone] Licensed Prosthetist/Orthotist: Dianna Rosen MD 03/28/2024 Mara Message [address] [phone] Licensed Prosthetist/Orthotist: Francy Moser Provider REFERRAL TO DR SHAYY FIGUEROA 03/25/2024 3:30 PM EST Telehealth [address] [phone] Licensed Prosthetist/Orthotist: Dianna Rosen MD Cervical vertebral fusion syndrome (Primary Dx); Chronic bilateral thoracic back pain; Left leg weakness 03/24/[address] [phone] Licensed Prosthetist/Orthotist: Queenie Bazan Telephone Intake, Staff PAC Appt Request - Established 03/21/[address] [phone] Licensed Prosthetist/Orthotist: Jennifer Reynoso PA Hypertension, unspecified type 03/21/2024 3:30 PM EST Follow-Up [facility] [address] [place] [address] Salomón Delgadillo MD History of fusion of cervical spine (Primary Dx) 03/14/[address] [phone] Licensed Prosthetist/Orthotist: Ramone Wallace LICSW 03/11/2024 2:15 PM EST Follow-Up [address] [phone] Licensed Prosthetist/Orthotist: Dianna Rosen MD Hypertension, unspecified type (Primary Dx); Moderate protein-calorie malnutrition (HCC); Klippel-Feil syndrome; Colon cancer screening; Lack of access to transportation 03/04/2024 Telephone [facility] [address] [place] [phone] Licensed Prosthetist/Orthotist: Dianna Rosen MD PAC Rx Questions 03/04/2024 Refill [facility] [address] [place] [phone] Licensed Prosthetist/Orthotist: Jennifer Reynoso PA Trochanteric bursitis of left hip 02/16/2024 5:01 PM EST - 02/16/2024 11:59 PM EST Hospital Encounter [facility] CT Scan [address] [place] [address] Cervical disc disorder with radiculopathy of mid-cervical region Discharge Disposition: Home or Self Care (01) 02/15/2024 Orders Only [facility] MRI [facility] [address] [place] [address] Ana Mustafa PA Mid-cervical disc disorder, unspecified level from Last 3 Months Allergies No known active allergies Medications * [...] total) by mouth 3 times a day. [phone] 270 tablet 12/04/19 23 Active betamethasone dipropionate [...] TAKE BY MOUTH 3 TIMES A DAY. Coalgate flavor. 330 mL 11 12/21/19 24 Active [...] like the case to be booked at [facility] as he does have a history [...] Viral infection 03/14/2016 12/03/2022 Pre-op examination 05/18/2015 Weakness of lower extremity 03/21/2015 05/18/2023 Acute gastritis 12/18/2014 12/03/2022 Gastroenteritis 09/07/2014 12/03/2022 Sprain of ribs 06/02/2014 12/03/2022 Hip pain 10/27/2013 12/03/2022 Contusion Of The Right Chest Wall With Intact Skin Surface 07/22/2012 12/03/2022 Disease of nail 06/09/2012 05/18/2023 Abdominal pain 10/10/2011 12/03/2022 Seborrheic dermatitis 03/11/20112022 Fracture of ankle Left 09/13/201012/03 Immunizations Name Administration Dates Next Due COVID-19, Pfizer, mRNA, Biva lent Booster, PF, 30 mcg/0.3 mL dose (for age 12 y and up) 01/01/2022 Covid-19, Pfizer, mRNA, [place] valent, PF 30 mcg/0.3 mL dose (for [...] Vaccine, 23 Valent 12/01/2018 Pneumococcal conjugate PCV20,polysaccharide [id number] conjugate, adjuvant, PF (Prevnar 20) 01/08/2024 Tetanus Toxoid, Reduced Diph theria Toxoid, and Acellular Pertussis Vaccine, Adsorbed 09/13/2018,03/08/2012 Zoster Vaccine Recombinant 01/12/2023 Social History Tobacco Use Types Packs/Day Years Used Date Smoking Tobacco: Every Day Cigarettes 1 38.4 Started: 09/22/1994 Smokeless Tobacco: Never Tobacco Cessation:Ready to Q uit: Not Asked; Counseling Given: Not Answered Comments:Pack years updated based on CT lung screen order. Alcohol Use Standard Drinks/Week Comments Yes 0 (1 standard drink = 0.6 oz pur e alcohol) 2 beers/every couple of days [facility] Utilities Answer Date Recorded In the [...] WITH POSSIBLE MODERATE SEDATION Colon cancer screening Medical Devices Implanted Type Area Tool Shaper Set Up Operator Device Identifier Shelf Expiration Date Model / Serial / Lot Mesh Inguinal Hernia Left Large [id number] - [id number] Implanted:Qty: 1 on 10/14/2019 by Kathy Grant MD at [facility] Mesh Left: Groin [employer] 04/02/2024 [id number] / / [id number] Procedures * Due to [place] MOBITRAC law, this organization might not be sharing [...] to Health Maintenance Results * Due to [place] MOBIT[place] law, this organization might not be sharing [...] obtain the completed interpretation. ? Workstation ID: [id number] Up-to-date CT equipment and radiation dose reduction [...] craniocervical junction is normal. Resulting Agency Comment [id number] Procedure Note Raheel Marx MD - 02/17/2024 [...] possible to obtain thecompleted interpretation. Workstation ID: [id number] Up-to-date CT equipment and radiation dose reduction techniques wereemployed. CTDIvol: 15.0 mGy. DLP: 385 mGy-cm. Ana PATEL IMGale CT PROCEDURES Final Resu lt * MRI [...] obtain the completed interpretation. ? Workstation ID: [id number] Narrative 02/16/2024 10:10 AM EST EXAMINATION: MRI [...] since the prior MRI. Resulting Agency Comment [id number] Procedure Note Carlie Rivera MD - 02/16/2024 [...] possible to obtain thecompleted interpretation. Workstation ID: [id number] us Ana PATEL IM MRI PROCEDURES Final Res ult * (ABNORMAL) Basic metabolic panel (12/21/2023 10:43 AM EDT) NA 142 135 - 145 mmol/L 12/21/2023 1:07 PM EDT [facility] K 3.5 3.5 - 5.3 mmol/L 12/21/2023 1:07 PM EDT [email or web address] Cl 106 98 - 107 mmol/L 12/21/2023 1:07 PM EDT [email or web address] CO2 26 24 - 32 mmol/L 12/21/2023 1:[address] [facility] [email or web address] BUN 7 7 - 23 mg/dL 12/21/2023 1:[address] [facility] [email or web address] Creatinine 1.13 0.60 - 1.30 mg/dL 12/21/2023 1:[address] [email or web address] Glucose 87 65 - 99 mg/dL 12/21/2023 1:07 PM EDT [email or web address] Calcium 8.5(L) 8.6 - 10.5 mg/dL 12/21/2023 1:07 PM EDT [email or web address] Anion Gap 10 5 - 15 [facility] 12/21/2023 1:07 PM EDT [email or web address] eGFR 75 >=60 mL/min/1. 73m2 [facility] MANUAL 12/21/2023 1:07 PM EDT [email or web address] Comment:The estimated glomer ular [...] MD LAB BLOOD ORDERABLES Fi nal Result [facility] [address] [place] [address], [place] * CT Lung Screening (09/21/2019 2:32 PM [...] screening Non solid nodule(s) (GGN): <30 mm (<28991 mm3) OR > or equal to 30 mm ( > [place] [address] mm3) and unchanged or slowly growing. Category 3 or 4 nodules unchanged for > or equal to 3 months. ?? Modifier No clinically significant or potentially significant findings Schedule lung cancer screening CT/follow-up CT:09/23/2020 ----- ----- This report uses Lung RADS version 1.1 (2019) [email or web address] [email or web address] .pdf? ??The patient's prior cervical fixation. ??La=en [id number] Up-to-date CT equipment and radiation dose reduction [...] minor wedging of what is likely the J5hktottzf. There is an area of sclerosis/groundglass change [...] screening Non solid nodule(s) (GGN): <30 mm (<28823 mm3) OR > or equal to 30 mm ( > [place] [address] mm3) and unchanged or slowly growing. Category 3 or 4 nodules unchanged for > or equal to 3 months. Modifier No clinically significant or potentially significant findings Schedule lung cancer screening CT/follow-up CT:09/23/2020 ----- ----- This report uses Lung RADS version 1.1 (2019) [email or web address] [email or web address] .[email or web address]? The patient's prior cervical fixation. La=en [id number] Up-to-date CT equipment and radiation dose reduction [...] saturations were monitored continuously. The [id number] OLYMPUS [id number] was introduced through the anus and advanced [...] was done by the physician, nurse and electrical engineering technician using the patient's name and date. Estimated blood loss was minimal. A localized area of granular mucosa was found in the rectum. Biopsies were taken with a cold forceps for histology. Verification of patient identification for the specimen was done by the physician, nurse and electrical engineering technician using the patient's name and date. [...] C Antibody NON-REACTI VE NON-REACT MO [facility] Signal To Cut-Off 0.01 <1.[address] [facility] 08/22/2016 1:04 PM EDT 08/22/2016 2:24 PM EDT Matthew Skaggs MD LAB BLOOD ORDERABLES Final Result JAMAL ARREOLA [address] [facility] [address] Floor, [place] [address], [place] [phone] * CT Abdomen Pelvis WO Contrast (09/24/2011 [...] the above report. Suzan De Los Santos [facility] [place] PROCEDURES Final Resu lt from Last 3 Months or Most Recently Relevant to Health Maintenance Insurance MEDICARE Advance Directives Documents on File Type Date Recorded Patient Day Habilitation Specialist Expl anation Health Care Proxy 01/10/2024 2:30 PM 01-07 Health Care Proxy 05/18/2015 12:00 AM 05/18 * Full Code (Latest Code Status on File) Date Activated Date Inactivated Comments 10/14/2019 11:34 AM 10/14/2019 9:06 PM Care Teams Baccarat Dealer Relationship Specialty Start Date End Date Dianna Machuca MD [address] [place] [phone] PCP - General Family Medicine 10/04/22
--- OUTSIDE RECORDS SUMMARY | 2024-05-06 10:29 | XMS_ITS | Encounter Summary ---
Author Organization [facility] Address [address] [place] [address] Care Team Providers Care Regional Sales Trainer Name Role Phone Dianna Machuca MD Primary Care Provider Reason for Visit * Reason Onset Date Comments Med Refill 04/18/2024 Encounter Details Date Type Department Care Team (Late st Contact Info) Description 04/18/2024 Refill [facility] [address] [place] [phone] Clinic Office Manager: Queenie Rico, ALECIA Armendariz Social History Tobacco Use Types Packs/Day Years [...] encounter Miscellaneous Notes * Telephone Encounter - Iwona Melton MA - 04/18/2024 3:44 PM EST Requested Prescriptions Pending Prescriptions Disp Refills calcium carbonate (Calcium Antacid) 200 mg calcium (500 mg) chewable tablet 180 tablet 0 Last fill: 12/30/23 Days Supply: 90 Refills: 0 Last visit: 03/25/2024 Next visit: 0 Pertanant Info: Not Applicable Health Maintenance Due Topic Date Due CT Lung Cancer Screening (12 months, previous LungRADS 1 or 2) 09/21/2020 Colonoscopy 11/13/2021 Zoster Vaccines (2 of 2) 03/09/2023 COVID-19 Vaccine ( season) 2023 Alcohol/Substance Use Screening Never done Depression Evaluation Never done Social Drivers of Health Annual Screening 04/06/2024 Actions Taken:None required documented in this encounter Plan of Treatment Scheduled Procedures Name Priority Associated Diagnoses Date/Ti me COLONOSCOPY SCREENING, LOW R ISK WITH POSSIBLE MODERATE SEDATION Colon cancer screening documented as of this encounter Visit Diagnoses Not on filedocumented in this encounter Care Teams Regional Sales Trainer Relationship Specialty Start Date End Date Dianna Machuca MD [address] [place] [phone] PCP - General Family Medicine 10/04/22 documented as of this encounter
--- OUTSIDE RECORDS SUMMARY | 2024-05-06 10:29 | XMS_ITS | Encounter Summary ---
Author Organization [facility] Address [address] [place] [address] Care Team Providers Care Die Maker Trim Name Role Phone Dianna Machuca MD Primary Care Provider Encounter Details Date Type Department Care Team (Late st Contact Info) Description 04/13/2024 [employer] Message [facility] [address] [place] [phone] Web Communications Specialist: Queenie Linares, [facility] Provider [facility] [place] [phone] Pt 1 Transportation Information Social History Tobacco Use Types Packs/Day Years Used Date Smoking Tobacco: Every Day Cigarettes 1 38.4 Started: 09/22/1994 Smokeless Tobacco: Never Comments:Pack years updated based on CT lung screen order. Alcohol Use Standard Drinks/Week Comments Yes 0 (1 standard drink = 0.6 oz pur e alcohol) 2 beers/every couple of days [facility] Utilities Answer Date Recorded In the past 12 months has [employer] electric, gas, oil, or water company threatened [...] on filedocumented in this encounter Care Teams Die Maker Trim Relationship Specialty Start Date End Date Dianna Machuca MD [address] [place] [id number] PCP - General Family Medicine 10/04/22 documented as of this encounter
== END 2024-05-06 10:26 | disposition home or self-care (01) ==
PROVIDERS: Visit Provider Neurological Surgery
DX: M48.02 Spinal stenosis, cervical region (principal); M54.12 Radiculopathy, cervical region
CPT/HCPCS: 99204

== ENCOUNTER → 2024-05-06 09:50 | Outpatient (BNVA) | payer MEDICARE, MEDICAID, SELFPAY | PROVIDERS: Visit Provider Neurological Surgery | DX: M48.02 Spinal stenosis, cervical region (principal); M54.12 Radiculopathy, cervical region | CPT/HCPCS: 99202 ==